=== PATIENT | female | born 1995 | race Two or more races ===

== ENCOUNTER 2023-01-23 09:20 | Emergency (ER) | payer OTHER ==
[~2023-01-23] VITALS: Ht 154.9 cm; Wt 56.7 kg
[2023-01-23 10:40] LABS: HEMATOCRIT 47.6 % (36.0-45.00); HEMOGLOBIN 16.1 g/dL (12.0-15.00); MEAN CELL VOLUME 88.8 fL (80.00-100.00); MEAN CORPUSCULAR HGB CONC 33.8 g/dl (32.0-36.0); PLATELET COUNT 279 K/uL (150-450); RED BLOOD COUNT 5.36 M/uL (4.00-6.00); RED CELL DISTRIBUTION WIDTH 13.3 % (11.5-14.5)
[2023-01-23 10:48] LABS: PH,URINE 5.5 (5.0-8.0); URINE APPEARANCE Clear; URINE BILIRRUBIN Negative (NEGATIVE); URINE BLOOD Negative; URINE COLOR Yellow; URINE GLUCOSE Negative (NEGATIVE); URINE LEUKOCYTE Negative; URINE NITRATE Negative; URINE PROTEIN Negative (NEGATIVE); URINE UROBILINOGEN 0.2 E.U./dl
[2023-01-23 10:51] LABS: URINE EPITHELIAL CELLS 34.4 uL (0.0-38.8); URINE RBC 2.4 uL (0.0-20.8); URINE WBC 23.3 uL (0.0-23.2)
[2023-01-23 11:11] LABS: ALBUMIN 4.3 gm/dL (3.4-5.0); BILIRUBIN TOTAL 0.55 mg/dL (0.3-1.2); CALCIUM 9.5 mg/dL (8.5-10.1); CREATININE SERUM 0.84 mg/dL (0.55-1.02); GFR 80.16; GLOBULINA 4.4 G/DL (2.4-3.5); TOTAL PROTEIN 8.7 gm/dL (6.4-8.2)
== END 2023-01-23 15:37 | disposition home or self-care (01) ==
LOC: ER 09:20
PROVIDERS: Emergency Medicine
DX: R53.81 Other malaise (principal); R11.10 Vomiting, unspecified; E16.1 Other hypoglycemia